=== PATIENT | male | born 1980 | race Caucasian/White ===

== ENCOUNTER 2018-08-11 09:35 | Outpatient (CLI) | payer BC ==
[2018-08-11 10:14] LABS: MEAN CORPUSCULAR HEMOGLOBIN 30.1 pg (28.0-34.0)
[2018-08-11 10:16] LABS: BASOPHILS % 1 % (0-2); EOSINOPHILS % 2 % (0-7); MONOCYTES % 5 % (0-11); SEGMENTED NEUTROPHILS % 66 % (39-79)
[2018-08-11 10:29] LABS: eGFR (Non-African) > 60
== END 2018-08-11 09:37 ==
LOC: LAB 09:35
PROVIDERS: ATTEND Family Medicine
DX: Z13.220 Encounter for screening for lipoid disorders (principal); Z86.79 Personal history of other diseases of the circulatory system; E78.1 Pure hyperglyceridemia
CPT/HCPCS: 36415; 80053; 80061; 85025

== ENCOUNTER 2019-03-27 20:15 | Emergency (ER) | payer BC ==
[2019-03-27] MEDS ORDERED: ASPIRIN 81 MG CHEW TAB PO ONE (20:23)
[2019-03-27 20:46] LABS: BASOPHILS % 0.5 % (0.0-1.5); NEUTROPHILS # 3.9 # k/uL (1.4-7.7)
[2019-03-27 20:51] LABS: eGFR (Non-African) > 60
--- NOTE | 2019-03-27 21:05 | Diagnostic Imaging Report ---
PATIENT MR#: [id number] PATIENT PATIENT NAME: ELOY POOL DATE OF : 1980 REFERRING PHYSICIAN: Vivek Ruiz EXAM DATE: 03/27/2019 ACCESSION NUMBER: [id number] EXAM DESCRIPTION: CHEST 2VIEW Examination: PA and lateral chest. History: Evaluate lung guillory. CHEST PAIN, INTRASCAPULAR PAIN Comparison exam: None provided. Findings: PA and lateral views of the chest demonstrates a normal cardiac and mediastinal silhouette. No focal infiltrate. No blunting of the costophrenic margins. Osseous structures are appropriate for age. Impression: No acute pulmonary process. Read by: Dr. Eloy Fermin Transcribed by: Transcribed Date: Electronically signed by: Dr. Eloy Fermin Date signed: 03/27/2019 9:05:01 PM
[2019-03-27 22:45] VITALS: BP 138/83
--- NOTE | 2019-03-27 23:00 | ED Physician Documentation ---
General Adult - HISTORIAN Historian: patient - HPI Stated Complaint: Chest discomfort for couple days, interrmitent Chief Complaint: General Adult Onset: days ago Timing: gone now Severity: mild Further Comments: yes (Pt is a 39 yo male with c/o chest pain intermittently over the past few weeks. Pain lasts only briefly, like a sharp stab. He has not had n/v, diaphoresis, or sob, though he does feel that he tires more easily and "just feels off." Pt has family hx valvular heart dz.) - ROS CONST: no problems EYES/ENT: none CVS/RESP: chest pain (brief, intermittent) GI/: none MS/SKIN/LYMPH: denies: calf pain - PAST HX Past History: none - SOCIAL HX Smoking History: non-smoker - FAMILY HX Family History: No - VITAL SIGNS Vital Signs: Vital Signs Temp Pulse Resp BP Pulse Ox 60 17 138/83 98 03/27/19 22:44 03/27/19 22:44 03/27/19 22:44 03/27/19 22:44 - REVIEWED ASSESSMENTS Nursing Assessment Reviewed: Yes Vitals Reviewed: Yes Progress - Progress Progress: ASA 324 mg po No pain in ER cardiac enzymes, d-dimer - wnl - EKG/XRAY/CT EKG: NSR (HR=80; normal axis; normal NH interval; non-specifici T-wave abnormality.) XRAY: chest (neg) ED Results Lab/Radiology - Lab Results Lab Results: Lab Results 03/27/19 03/27/19 20:37 20:37 WBC 7.10 K/ul K/ul (4.00-12.00) RBC 4.97 M/ul M/ul (3.90-5.20) Hgb 15.4 g/dL g/dL (12.0-18.0) Hct 44.9 % % (37.0-53.0) MCV 90.0 fl fl (80.0-100.0) MCH 30.9 pg pg (28.0-34.0) MCHC 34.2 g/dL g/dL (30.0-36.0) RDW 11.4 % % (11.3-14.3) Plt Count 164 K/mm3 K/mm3 (130-400) Neut % (Auto) 55.5 % % (39.0-79.0) Lymph % (Auto) 29.0 % % (16.0-50.0) [place] % (Auto) 10.7 % % (0.0-11.0) Eos % (Auto) 4.3 % % (0.0-6.8) Baso % (Auto) 0.5 % % (0.0-1.5) Neut # (Auto) 3.9 # k/uL # k/uL (1.4-7.7) Lymph # (Auto) 2.1 # k/uL # k/uL (0.6-4.0) [place] # (Auto) 0.8 # k/uL # k/uL (0.0-0.9) Eos # (Auto) 0.3 # k/uL # k/uL (0.0-0.6) Baso # (Auto) 0.0 # k/uL # k/uL (0.0-0.5) Sodium 142 mmol/L mmol/L (137-145) Potassium 4.1 mmol/L mmol/L (3.5-5.1) Chloride 104 mmol/L mmol/L (98-107) Carbon Dioxide 29 mmol/L mmol/L (22-30) Anion Gap 13.1 BUN 16 mg/dL mg/dL (9-20) Creatinine 1.05 mg/dL mg/dL (0.66-1.25) Estimated Creat Clear 121 Est GFR ( Amer) > 60 (60 - ) Est GFR (Non-Af Amer) > 60 (60 - ) Glucose 108 mg/dL H mg/dL (74-106) Calcium 9.6 mg/dL mg/dL (8.4-10.2) Total Bilirubin 0.4 mg/dL mg/dL (0.2-1.3) AST 40 U/L U/L (15-46) ALT 46 U/L U/L (0-50) Alkaline Phosphatase 81 U/L U/L (38-126) Creatine Kinase 36 U/L L U/L (55-170) CK-MB (CK-2) 0.5 ng/mL ng/mL (0.0-5.6) Troponin I < 0.012 ng/mL L ng/mL (0.012-0.034) Total Protein 7.8 g/dL g/dL (6.3-8.2) Albumin 4.6 g/dL g/dL (3.5-5.0) - Orders Orders: ED Orders Category Date Time Status Continuous EKG monitoring Q30M Care 03/27/19 20:23 Active Continuous Pulse Oximetry Q30M Care 03/27/19 20:[address] IV Lock 1T Care 03/27/19 20:23 Active CHEST 2VIEW [RAD] Stat Exams 03/27/19 Completed CBC/PLATELET/DIFF Stat Lab 03/27/19 20:37 Completed CKMB Stat Lab 03/27/19 20:37 Completed CMP Stat Lab 03/27/19 20:37 Completed CREATINE KINASE Stat Lab 03/27/19 20:37 Completed D DIMER Stat Lab 03/27/19 22:11 Received TROPONIN I Stat Lab 03/27/19 20:37 Completed Aspirin [Janessa] Med 03/27/19 20:23 Discontinued 324 mg PO NOW ONE Oxygen Daily Oxygen 03/27/19 20:30 Ordered EKG WITH COMPARISON Stat Ther 03/27/19 20:23 Ordered General Adult Physical Exam - PHYSICAL EXAM GENERAL APPEARANCE: mild anxiety EENT: pharynx normal NECK: normal inspection, supple RESPIRATORY: no resp distress, chest non-tender, breath sounds normal CVS: reg rate & rhythm, heart sounds normal ABDOMEN: soft, no organomegaly, normal bowel sounds BACK: normal inspection, no CVA tenderness SKIN: warm/dry, normal color EXTREMITIES: non-tender, normal range of motion, no evidence of injury NEURO: oriented X3, motor nml, sensation nml Discharge Clincal Impression: non-cardiac chest pain Referrals: Viktor Badillo MD [Primary Care Provider] - Condition: Stable Disposition: 01 HOME, SELF-CARE Decision to Admit: NO Decision Time: 22:45
[2019-03-28 12:43] LABS: SEGMENTED NEUTROPHILS % 63 % (39-79)
== END 2019-03-27 22:37 | disposition home or self-care (01) ==
LOC: ED 20:15
DX: J44.1 Chronic obstructive pulmonary disease with (acute) exacerbation (principal)
CPT/HCPCS: 36415; 80053; 82550; 82553; 84484; 85025; 85379; 93005; S1016